=== PATIENT | female | born 1975 | race American Indian/Alaskan Native ===

== ENCOUNTER 2018-05-19 09:40 | Emergency (ER) | payer BC, OTHER ==
[2018-05-19 09:50] VITALS: BP 140/83
[2018-05-19] MEDS ORDERED: NORCO 5/325 PO ONE (11:36)
[2018-05-19] MEDS ORDERED: ZOFRAN ODT PO ONE (11:37)
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
== END 2018-05-19 11:50 | disposition home or self-care (01) ==
LOC: ED 09:40
DX: R07.89 Other chest pain (principal); M54.6 Pain in thoracic spine; V89.2XXA Person injured in unspecified motor-vehicle accident, traffic, initial encounter; Y93.89 Activity, other specified; Y92.488 Other paved roadways as the place of occurrence of the external cause; Y99.8 Other external cause status
CPT/HCPCS: 99282; Q0162